=== PATIENT | male | born 1965 | race Two or more races ===

== ENCOUNTER 2023-03-04 09:28 | Inpatient (IN) | payer BC, MEDICAID ==
[~2023-03-04] VITALS: Ht 167.6 cm; Wt 66.5 kg
[2023-03-04 10:54] LABS: Alanine Aminotransferase 11 U/L (7-40); Albumin 3.9 g/dL (3.2-4.8); Alkaline Phosphatase 40 U/L (46-116); Aspartate Aminotransferase 14 U/L (13-40); BUN/Creatinine Ratio 20.6 (10.0-20.0); Blood Urea Nitrogen 22 mg/dL (9-23); Calcium 9.5 mg/dL (8.5-10.1); Carbon Dioxide 24 mmol/L (20-30); Glucose 199 mg/dL (74-106)
[2023-03-04 10:55] LABS: Bilirubin, Total 0.7 mg/dL (0.2-1.0); Total Protein 6.7 g/dL (5.7-8.2)
[2023-03-04 10:56] LABS: Basophils # (auto) 0 10 ^3/uL (0-0.2); Basophils % (auto) 0.4 % (0.0-2.0); Eosinophils # (auto) 0 10 ^3/uL (0-0.8); Hematocrit 35.3 % (41.0-53.0); Lymphocytes # (auto) 0.3 10 ^3/uL (0.4-5.4); Monocytes # (auto) 0.5 10 ^3/uL (0-1.3); Neutrophils # (auto) 2.1 10 ^3/uL (1.6-8.6)
[2023-03-04 10:58] LABS: Eosinophils % (auto) 1.3 % (0.0-7.0); Hemoglobin 12.3 g/dL (13.5-17.5); Lymphocytes % (auto) 11.2 % (10.0-50.0); Mean Corpuscular Hgb Conc. 34.7 g/dL (32.0-36.0); Mean Corpuscular Volume 103.6 fL (80.0-100.0); Monocytes % (auto) 16.6 % (0.0-12.0); Neutrophils % (auto) 70.5 % (37.0-80.0); Nucleated Red Blood Cells % 0.2 %; Red Blood Cells 3.41 10^6/uL (4.5-5.90)
[2023-03-04 11:02] LABS: Red Cell Distribution Width 24.5 % (11.8-14.3)
[2023-03-04 11:33] LABS: Anion Gap 7 (5-15); Chloride 105 mmol/L (98-107); Potassium 4.1 mmol/L (3.5-5.1); Sodium 136 mmol/L (136-145)
[2023-03-04 12:30] LABS: Urine Bacteria NONE SEEN /hpf (None Seen); Urine Blood Negative /uL (Negative); Urine Clarity Clear (Clear); Urine Color Colorless (Yellow); Urine Protein, UAD Negative (Negative); Urine Specific Gravity 1.045 (1.001-1.035); Urine Urobilinogen Normal (Negative); Urine WBC 3 /hpf (0 - 3)
[2023-03-04 13:06] LABS: Anisocytosis Moderate; Platelet Estimate Decreased
[2023-03-04 13:07] LABS: Macrocytosis Slight
[2023-03-04] MEDS ORDERED: SODIUM CHLORIDE 0.9% 1,000 ML IV ONE ×2 (13:30)
[2023-03-04] MEDS ORDERED: ONDANSETRON HCL 4 MG/2 ML VIAL IV ONE (13:30)
[2023-03-04 13:45] VITALS: PULSE 82; RESP 11; O2SAT 98
[2023-03-04] MEDS ORDERED: ONDANSETRON HCL 4 MG/2 ML VIAL IV PRN (14:45)
[2023-03-04] MEDS ORDERED: METOCLOPRAMIDE HCL 5MG/ml INJ 2ml VIAL IV PRN (14:45)
[2023-03-04] MEDS ORDERED: PANT40T PO (14:46)
[2023-03-04] MEDS ORDERED: FENO145T27 PO (14:46)
[2023-03-04] MEDS ORDERED: PROC10TA6 PO (14:46)
[2023-03-04] MEDS ORDERED: ONDA-180 PO (14:46)
[2023-03-04] MEDS ORDERED: LISI2.5T47 PO (14:46)
[2023-03-04] MEDS ORDERED: METO5TAB2 PO (14:46)
[2023-03-04] MEDS ORDERED: EMPA1TAB PO (14:46)
[2023-03-04] MEDS ORDERED: PANTOPRAZOLE 40 MG/10 ML VIAL INJ IV ONE (15:00)
[2023-03-04] MEDS ORDERED: DEXTROSE (50%) 50ML SYRG IV ONE (16:00)
[2023-03-04] MEDS ORDERED: ACCU-CHEK COMFORT CURVE STRIP VI ONE (17:00)
[2023-03-04] MEDS ORDERED: InsuLIN REG 1unit/0.01ml Soln (100units/ml) SC ONE (17:00)
[2023-03-04 19:25] VITALS: PULSE 89; RESP 16; O2SAT 16
[2023-03-04] MEDS ORDERED: DEXTROSE (50%) 50ML SYRG IV SCH (20:00)
[2023-03-04] MEDS ORDERED: SODIUM CHLORIDE 0.9% 500 ML IV ONE (20:30)
[2023-03-04] MEDS: InsuLIN REG 1unit/0.01ml Soln (100units/ml) SC SCH (22:00)
[2023-03-04] MEDS: SODIUM CHLOR 0.9% PF (SALINE LOCK) 10ML VIAL/SYR IV SCH (22:11)
[2023-03-04] MEDS: ACCU-CHEK COMFORT CURVE STRIP VI SCH (22:11)
[2023-03-05 00:10] VITALS: BP 92/53; PULSE 89; RESP 19; TEMP 98.8; O2SAT 94
[2023-03-05 00:30] VITALS: BP 92/53; PULSE 89; RESP 17; TEMP 98.8; O2SAT 94
[2023-03-05 05:00] VITALS: BP 92/54; PULSE 79; RESP 17; TEMP 98.3; O2SAT 95
[2023-03-05 05:49] LABS: Hemoglobin 9.9 g/dL (13.5-17.5); Mean Corpuscular Volume 105.5 fL (80.0-100.0)
[2023-03-05 05:51] LABS: Hematocrit 28.3 % (41.0-53.0); Mean Corpuscular Hemoglobin 36.8 pg (28.0-32.0); Mean Corpuscular Hgb Conc. 34.9 g/dL (32.0-36.0); Red Blood Cells 2.68 10^6/uL (4.5-5.90); Red Cell Distribution Width 24.8 % (11.8-14.3)
[2023-03-05] MEDS: SODIUM CHLOR 0.9% PF (SALINE LOCK) 10ML VIAL/SYR IV SCH ×2 (05:55→13:43)
[2023-03-05 05:56] LABS: Band Neutrophils % (manual) 0; Basophils % (manual) 0 (0.0-2.0); Blast Cells 0; Metamyelocytes % 0; Myelocytes % 0; Promyelocytes % 0; Reactive Lymphocytes 0
[2023-03-05] MEDS: ACCU-CHEK COMFORT CURVE STRIP VI SCH ×3 (05:58→17:00)
[2023-03-05] MEDS: InsuLIN REG 1unit/0.01ml Soln (100units/ml) SC SCH ×3 (05:58→17:00)
[2023-03-05 06:05] LABS: Albumin 3.1 g/dL (3.2-4.8); Alkaline Phosphatase 34 U/L (46-116); Anion Gap 5 (5-15); Aspartate Aminotransferase 8 U/L (13-40); BUN/Creatinine Ratio 17.8 (10.0-20.0); Bilirubin, Total 0.4 mg/dL (0.2-1.0); Blood Urea Nitrogen 18 mg/dL (9-23); Calcium 8.4 mg/dL (8.7-10.4); Carbon Dioxide 23 mmol/L (20-30); Chloride 112 mmol/L (98-107); Glucose 118 mg/dL (74-106); Potassium 3.7 mmol/L (3.5-5.1); Sodium 140 mmol/L (136-145); Total Protein 5.3 g/dL (5.7-8.2)
[2023-03-05 06:10] LABS: Alanine Aminotransferase < 9 U/L (7-40)
[2023-03-05 06:33] LABS: Eosinophils % (manual) 1 (0-7); Lymphocytes % (manual) 22 (10.0-50.0); Monocytes % (manual) 11 (0-12); Platelet Estimate Decreased
[2023-03-05] MEDS ORDERED: EMPAGLIFLOZIN 10 MG TAB PO SCH (07:00)
[2023-03-05 08:00] VITALS: BP 94/55; PULSE 87; RESP 20; TEMP 97.5; O2SAT 93; O2SAT 99
[2023-03-05] MEDS ORDERED: Fenofibrate 145MG PO SCH (10:00)
[2023-03-05] MEDS ORDERED: LISINOPRIL 5 MG TAB PO SCH (10:00)
[2023-03-05] MEDS ORDERED: PANTOPRAZOLE 40 MG/10 ML VIAL INJ IV SCH (10:00)
[2023-03-05] MEDS ORDERED: ZOFR4T PO (11:54)
[2023-03-05 12:50] VITALS: BP 97/56; PULSE 72; RESP 18; TEMP 98; O2SAT 94
[2023-03-05 13:15] VITALS: BP 94/55; TEMP 36.4
== END 2023-03-05 17:30 | disposition home or self-care (01) | DRG 391 ==
LOC: ER 09:28 → OVERFLOW 14:46 → WEST WING 03-05 00:02
PROVIDERS: ADMIT Nurse Practitioner Family; ATTEND Nurse Practitioner Family
DX: R11.2 Nausea with vomiting, unspecified (principal); D61.810 Antineoplastic chemotherapy induced pancytopenia; E11.9 Type 2 diabetes mellitus without complications; E78.1 Pure hyperglyceridemia; E86.0 Dehydration; T45.1X5A Adverse effect of antineoplastic and immunosuppressive drugs, initial encounter; Z88.8 Allergy status to other drugs, medicaments and biological substances; Y92.89 Other specified places as the place of occurrence of the external cause; Z85.048 Personal history of other malignant neoplasm of rectum, rectosigmoid junction, and anus
CPT/HCPCS: 36415; 74176; 80053; 81001; 82962; 83690; 84484; 85007; 85025; 85027; 93005; 96361; 96374; 96375; C9113; G0378; J1815; J2405